=== PATIENT | male | born 1995 | race Caucasian/White ===

== ENCOUNTER 2024-01-19 15:23 | Emergency (ER) | payer BC, SELFPAY ==
[2024-01-19 15:27] VITALS: BP 149/95; PULSE 75; TEMP 36.6; O2SAT 99; BMI 33.5
--- NOTE | 2024-01-19 15:36 | ED_ITS ---
HPI - Nausea/Vomiting/Diarrhea General Chief complaint: Nausea/Vomiting/Diarrhea Stated complaint: Vomiting Time Seen by Provider: 01/19/24 15:24 Source: patient Mode of arrival: walk-in Limitations: no limitations History of Present Illness HPI Narrative: Patient is a 28-year-old male who presents to the emergency department for 2- hour history of vomiting. He states he was at work when he felt lightheaded and his vision went fuzzy and he has now continued to vomit. He has no abdominal pain, fevers, chills, recent illness. He has not had any diarrhea. No sick contacts. No recent travel or antibiotics, he states that he did have a weekend in [place] but he has not been out of the country. He has able to urinate without difficulty. No previous abdominal surgeries. He has no history of GI issues. He and his went to urgent care for him to be evaluated, urgent care referred him to the ER for an IV. Related Data Previous Rx's ?Medication ?Instructions ?Recorded famotidine 20 mg tablet (Pepcid) 20 mg PO BID #10 tabs 01/19/24 ondansetron 4 mg disintegrating 4 mg PO Q6H PRN nausea and 01/19/24 tablet vomiting #12 tabs Allergies Allergy/AdvReac Type Severity Reaction Status Date / Time azithromycin [From Zithromax] AdvReac Mild Hives Verified 01/19/24 15:27 Review of Systems ROS Constitutional Denies: fever or chills Ears, nose, mouth, and throat Denies: throat pain or nasal congestion Respiratory Denies: shortness of breath Gastrointestinal Reports: nausea and vomiting; Denies: abdominal pain or diarrhea Genitourinary Denies: painful urination Musculoskeletal Denies: back pain Integumentary/Breast Denies: rash Endocrine Denies: excessive urination Hematologic/Lymphatic Denies: easy bruising or easy bleeding Exam Narrative Exam Narrative: Gen.: Awake, alert, in no distress Head: Normocephalic, atraumatic ENT: Moist mucous membranes Respiratory: No respiratory distress, lungs clear bilaterally Cardio: Regular rate and rhythm Gastrointestinal: Abdomen is soft, nondistended and nontender to palpation Extremities: Moves extremities equally Psych: Normal mood and affect Neuro: No focal neuro deficit Skin: Warm, dry, intact Constitutional Vital Signs, click to edit/add: Last Vital Signs Temp 97.9 F 01/19/24 15:27 Pulse 75 01/19/24 15:27 Resp 18 01/19/24 15:27 BP 149/95 H 01/19/24 15:27 Pulse Ox 99 01/19/24 15:27 O2 Del Method Room Air 01/19/24 15:27 Course Vital Signs Vital signs: Vital Signs Temperature 97.9 F 01/19/24 15:27 Pulse Rate 75 01/19/24 15:27 Respiratory Rate 18 01/19/24 15:27 Blood Pressure 149/95 H 01/19/24 15:27 Pulse Oximetry 99 01/19/24 15:27 Oxygen Delivery Method Room Air 01/19/24 15:27 Temperature 97.9 F 01/19/24 15:27 Pulse Rate 75 01/19/24 15:27 Respiratory Rate 18 01/19/24 15:27 Blood Pressure 149/95 H 01/19/24 15:27 Pulse Oximetry 99 01/19/24 15:27 Oxygen Delivery Method Room Air 01/19/24 15:27 MDM - Nausea/Vomiting/Diarrhea MDM Narrative Medical decision making narrative: Patient treated with IV fluids, Zofran and Pepcid and states he is feeling well on reevaluation. Lab studies are unremarkable. Abdomen is soft and benign. He tolerated water with ice chips with no difficulty in the ER and is discharged home with Zofran and Pepcid. Follow-up with PCP and return to the ER if symptoms change or worsen SUPERVISED APC VISIT, PHYSICIAN ATTESTATION: Based on the medical record the care appears appropriate. ? Medical Records Attestation: I reviewed the patient's medical records. Lab Data Attestation: I reviewed the patient's lab results. Labs: Lab Results 01/19/24 Range/Units 15:50 WBC 7.9 (4.0-11.0) 10^3/uL RBC 5.14 (4.70-6.10) 10^6/uL Hgb 15.3 (14.0-18.0) g/dL Hct 42.8 (42.0-54.0) % MCV 83.3 (80.0-94.0) fL MCH 29.8 (25.9-34.0) pg MCHC 35.7 H (29.9-35.2) g/dL RDW 12.6 (11.0-15.0) % Plt Count 229 (150-450) 10^3/uL MPV 11.9 (9.5-13.5) fL Neut % (Auto) 61.0 (43.0-75.0) % Lymph % (Auto) 24.9 (20.5-60.0) % [place] % (Auto) 9.6 (1.7-12.0) % Eos % (Auto) 3.4 (0.9-7.0) % Baso % (Auto) 0.6 (0.2-2.0) % Neut # (Auto) 4.8 (1.4-6.5) 10^3/uL Lymph # (Auto) 2.0 (1.2-3.8) 10^3/uL [place] # (Auto) 0.8 (0.3-0.8) 10^3/uL Eos # (Auto) 0.3 (0.0-0.7) 10^3/uL Baso # (Auto) 0.1 (0.0-0.1) 10^3/uL Abs Immat Gran (auto) 0.04 H (0.00-0.03) 10^3/uL Imm/Tot Granulo (auto) 0.5 (0.0-0.5) % Sodium 142 (136-145) mmol/L Potassium 3.9 (3.5-5.1) mmol/L Chloride 105 (98-107) mmol/L Carbon Dioxide 29.4 (21.0-32.0) mmol/L Anion Gap 11.5 BUN 16.0 (7.0-18.0) mg/dL Creatinine 1.12 (0.70-1.30) mg/dL Est GFR ( Amer) >60 (>=60) Est GFR (Non-Af Amer) >60 (>=60) BUN/Creatinine Ratio 14.3 Glucose 96 (74-106) mg/dL Calcium 9.7 (8.5-10.1) mg/dL Total Bilirubin 0.5 (0.2-1.0) mg/dL AST 34 (15-37) U/L ALT 74 H (16-63) U/L Alkaline Phosphatase 79 (46-116) U/L Total Protein 7.5 (6.4-8.2) g/dL Albumin 3.9 (3.4-5.0) g/dL Globulin 3.6 g/dL Albumin/Globulin Ratio 1.1 Lipase 42.0 (16.0-77.0) U/L Urine Color Lt. yellow (YELLOW) Urine Clarity Clear (CLEAR) Urine pH 7.0 (5.0-9.0) Ur Specific [place] 1.020 (1.005-1.025) Urine Protein Negative (NEG/TRACE) mg/dL Urine Glucose (UA) Negative (NEGATIVE) mg/dL Urine Ketones Negative (NEGATIVE) mg/dL Urine Occult Blood Negative (NEGATIVE) Urine Nitrite Negative (NEGATIVE) Urine Bilirubin Negative (NEGATIVE) Urine Urobilinogen 0.2 (0.2-1.0) EU/dL Ur Leukocyte Esterase Negative (NEGATIVE) Discharge Plan Discharge Stand Alone Forms: Portal Instructions Chief Complaint: Nausea/Vomiting/Diarrhea Clinical Impression: Vomiting Patient Disposition: Home, Self-Care Time of Disposition Decision: 16:46 Condition: Good Prescriptions / Home Meds: New famotidine [Pepcid] 20 mg tablet 20 mg PO BID Qty: 10 0RF ondansetron 4 mg tablet,disintegrating 4 mg PO Q6H PRN (Reason: nausea and vomiting) Qty: 12 0RF Print Language: [place] Instructions: Acute Nausea and Vomiting (ED) Referrals: NEISHA MILLER [Primary Care Provider] - 1 week
[2024-01-19] MEDS: FAMOTIDINE/PF 20 MG/2 ML VIAL IV (15:56)
[2024-01-19] MEDS: ONDANSETRON PF 4 MG/2 ML VIAL IV (15:56)
[2024-01-19] MEDS: 0.9 % SODIUM CHLORIDE 1,000 ML 999 ML IV (15:56)
[2024-01-19 16:09] LABS: Basophils Absolute Auto 0.1 10^3/uL (0.0-0.1); Basophils Percent Auto 0.6 % (0.2-2.0); Eosinophils Absolute Auto 0.3 10^3/uL (0.0-0.7); Eosinophils Percent Auto 3.4 % (0.9-7.0); Hematocrit 42.8 % (42.0-54.0); Hemoglobin 15.3 g/dL (14.0-18.0); Immature Granulocytes Abs Auto 0.04 10^3/uL (0.00-0.03); Immature Granulocytes Pct Auto 0.5 % (0.0-0.5); Lymphocytes Percent Auto 24.9 % (20.5-60.0); Mean Corpuscular HGB Conc 35.7 g/dL (29.9-35.2); Mean Corpuscular Hemoglobin 29.8 pg (25.9-34.0); Mean Corpuscular Volume 83.3 fL (80.0-94.0); Mean Platelet Volume 11.9 fL (9.5-13.5); Monocytes Absolute Auto 0.8 10^3/uL (0.3-0.8); Monocytes Percent Auto 9.6 % (1.7-12.0); Neutrophils Absolute Auto 4.8 10^3/uL (1.4-6.5); Platelet Count 229 10^3/uL (150-450); Red Blood Count 5.14 10^6/uL (4.70-6.10); Red Cell Distribution Width 12.6 % (11.0-15.0); White Blood Count 7.9 10^3/uL (4.0-11.0)
[2024-01-19 16:12] LABS: Bilirubin Urine NEGATIVE (NEGATIVE); Blood Urine NEGATIVE (NEGATIVE); Clarity Urine CLEAR (CLEAR); Color Urine LT. YELLOW (YELLOW); Glucose Urine UA NEGATIVE (NEGATIVE); Ketones Urine NEGATIVE (NEGATIVE); Leukocyte Esterase Urine NEGATIVE (NEGATIVE); Nitrite Urine NEGATIVE (NEGATIVE); Protein Urine NEGATIVE (NEG/TRACE); Urobilinogen Urine 0.2 EU/dL (0.2-1.0)
[2024-01-19 16:13] LABS: Urine Microscopic Indicated NO
[2024-01-19 16:27] LABS: Alanine Aminotransferase 74 U/L (16-63); Albumin Globulin Ratio 1.1; Albumin Level 3.9 g/dL (3.4-5.0); Alkaline Phosphatase 79 U/L (46-116); Anion Gap 11.5; Aspartate Amino Transferase 34 U/L (15-37); BUN Creatinine Ratio 14.3; Bilirubin Total 0.5 mg/dL (0.2-1.0); Calcium 9.7 mg/dL (8.5-10.1); Carbon Dioxide 29.4 mmol/L (21.0-32.0); Chloride 105 mmol/L (98-107); Estimated GFR (African America >60 (>=60); Estimated GFR (Non-African Ame >60 (>=60); Globulin 3.6 g/dL; Glucose 96 mg/dL (74-106); Potassium 3.9 mmol/L (3.5-5.1); Sodium 142 mmol/L (136-145); Total Protein 7.5 g/dL (6.4-8.2)
[2024-01-19 17:15] VITALS: BP 127/64; PULSE 80; O2SAT 100
== END 2024-01-19 17:18 | disposition home or self-care (01) ==
PROVIDERS: Physician Assistant; Emergency Provider Student in an Organized Health Care Education/Training Program; PCP Family Medicine
DX: R11.10 Vomiting, unspecified (principal)
CPT/HCPCS: 36415; 80053; 81003; 83690; 85025; 96361; 96374; 96375; 99285; J2405